=== PATIENT | female | born 1950 | race Caucasian/White ===

== ENCOUNTER 2019-06-27 12:27 | Emergency (ER) | payer OTHER ==
--- NOTE | 2019-06-27 12:34 | ED ---
HPI Cardiac - HPI Summary HPI Summary: 68 year old F presenting to [facility] with a chief complaint of shortness of breath on exertion since 4 weeks ago. Patient reports occasional tingling radiating down her right arm which she attributes to cervical radiculopathy and weight gain which she is unable to quantify. Symptoms aggravated by exertion. Symptoms alleviated by a nebulizer which was administered by EMS prior to arrival because they heard wheezing. Patient denies any dyspnea at rest, upper respiratory symptoms, orthopnea, fever, chills, diaphoresis, erythema of eyes, sore throat, chest pressure, cough, abdominal pain, nausea/vomiting, dysuria, hematuria, myalgia, edema, rash, or dizziness. She has a history of asthma which she states is allergic asthma that flares up in the fall and spring. She has had no known exposures to COVID-19. Medication list reviewed. Allergy list reviewed. - History of Current Complaint Stated Complaint: SOB PER EMS Hx Obtained From: Patient Onset/Duration: Started Weeks Ago Timing: Intermittent Aggravating Factor(s): Exertion Alleviating Factor(s): Medication Associated Signs and Symptoms: Positive: Negative - Orthopnea, erythema (eyes), sore throat, dysuria, hematuria, myalgia, rash, Tingling - Right arm, Shortness of Breath, Other: - Weight gain. Negative: Chest Pain, Dizziness, Fever, Chills , Diaphoresis, Nausea, Cough, Abdominal Pain, Vomiting, Edema - Allergy/Home Medications Allergies/Adverse Reactions: Allergies Allergy/AdvReac Type Severity Reaction Status Date / Time acetaminophen [From Tavist] Allergy Itching Verified 06/27/19 13:24 atorvastatin [From Lipitor] Allergy Muscle Ache Verified 06/27/19 13:24 clemastine [From Tavist] Allergy Itching Verified 06/27/19 13:24 pseudoephedrine [From Tavist] Allergy Itching Verified 06/27/19 13:24 quetiapine [From Seroquel] Allergy Anaphylatic Verified 06/27/19 13:24 Shock Home Medications: Home Medications Albuterol HFA INHALER* [Ventolin HFA Inhaler*] 2 puff INH Q4H PRN 06/27/19 [ History Confirmed 06/27/19] Cholecalciferol CAP/TAB(NF) [Vitamin D3 CAP/TAB (NF)] 2,000 unit PO . DIRECTED 06/27/19 [History Confirmed 06/27/19] EPINEPHrine [Epipen-Jr 2-Zeb] 0.15 mg IM ONCE PRN 06/27/19 [History Confirmed ] Ezetimibe/Simvastatin [Ezetimibe/Simvastatin 10-20 mg] 1 tab PO DAILY 06/27/19 [ History Confirmed 06/27/19] Fexofenadine (NF) [Nuvia 180 (NF)] 180 mg PO DAILY 06/27/19 [History Confirmed 06/27/19] Fluoxetine (Nf) Cap [Fluoxetine HCl] 40 mg PO QAM 06/27/19 [History Confirmed ] Furosemide TAB* [Lasix TAB*] 20 mg PO DAILY 06/27/19 [History Confirmed 06/27/19 ] PMH/Surg Hx/FS Hx/Imm Hx Endocrine/Hematology History: Denies: Hx Diabetes Cardiovascular History: Reports: Hx Hypercholesterolemia Denies: Hx Hypertension - Surgical History Surgical History: Yes Surgery Procedure, Year, and Place: Gallbladder, tonsils, hysterectomy, right knee arthroscopy, left hip, right arm - Family History Known Family History: Negative: Cardiac Disease - CAD - Social History Alcohol Use: None Hx Substance Use: No Substance Use Type: Reports: None Hx Tobacco Use: No Smoking Status (MU): Never Smoked Tobacco Review of Systems Positive: Other - Weight gain. Negative: Fever, Chills, Skin Diaphoresis Negative: Erythema Negative: Sore Throat Negative: Chest Pain Respiratory: Negative - Orthopnea Positive: Shortness Of Breath - On exertion. Negative: Cough Negative: Abdominal Pain, Vomiting, Nausea Negative: dysuria, hematuria Negative: Myalgia, Edema Negative: Rash Neurological/Mental Status: Negative - Dizziness Positive: Paresthesia - Right arm All Other Systems Reviewed And Are Negative: Yes Physical Exam - Summary Physical Exam Summary: Constitutional: Well-developed, Well-nourished, Alert. (-) Distressed Skin: Warm, Dry HENT: Normocephalic; Atraumatic Eyes: Conjunctiva normal Neck: Musculoskeletal ROM normal neck. (-) JVD, (-) Stridor, (-) Tracheal deviation Cardio: Rhythm regular, rate normal, Heart sounds normal; Intact distal pulses; The pedal pulses are 2+ and symmetric. Radial pulses are 2+ and symmetric. (-) Murmur Pulmonary/Chest wall: Effort normal. (-) Respiratory distress, (-) Wheezes, (-) Rales Abd: Soft, (-) tenderness, (-) Distension, (-) Guarding, (-) Rebound Musculoskeletal: (-) Edema Lymph: (-) Cervical adenopathy Neuro: Alert, Oriented x3 Psych: Mood and affect Normal Triage Information Reviewed: Yes Vital Signs Reviewed: Yes Procedures - Sedation Patient Received Moderate/Deep Sedation with Procedure: No Diagnostics - Laboratory Result Diagrams: 06/27/19 15:57 06/27/19 15:57 Lab Statement: Any lab studies that have been ordered have been reviewed, and results considered in the medical decision making process. - Radiology Chest x-ray Radiology Interpretation Completed By: Radiologist Summary of Radiographic Findings: NO ACTIVE CARDIOPULMONARY DISEASE. ED physician has reviewed this report. - EKG 12:52 Cardiac Rate: NL - 76 BPM EKG Rhythm: Sinus Rhythm Summary of EKG Findings: No STEMI. ED physician has reviewed and interpreted this EKG. Disposition - Course Course Of Treatment: 68 year old F presenting to [facility] with a chief complaint of shortness of breath on exertion since 4 weeks ago. Patient reports occasional tingling radiating down her right arm which she attributes to cervical radiculopathy and weight gain which she is unable to quantify. Physical exam findings reveal no abnormalities. An EKG reveals sinus rhythm rate of 76 BPM, no STEMI. CXR reveals, per radiologist, NO ACTIVE CARDIOPULMONARY DISEASE. Laboratory results with no significant abnormalities except for a BUN of 25, and BUN/creatinine ratio of 32.5. In the ED course, the patient was given Duonebs. Patient will be discharged with follow up from Dr. Haque and Dr. Allen. The patient is agreeable with this plan. - Diagnoses Provider Diagnoses: Suspected COVID-19 virus infection, Allergic asthma, Dyspnea on exertion - Critical Care Time Critical Care Statement: Critical care time is provided exclusive of any time spent performing procedures. Discharge ED - Sign-Out/Discharge Documenting (check all that apply): Patient Departure - Discharge Plan Condition: Stable Disposition: HOME Patient Education Materials: Asthma (ED), Dyspnea (ED), COVID-19 (Coronavirus Disease 2019) (ED) Forms: COVID-19 Tested & Isolation Referrals: Garland QUIROZ,Chuy Bergman [Primary Care Provider] - 3 Days Olivier Allen MD [Medical Doctor] - 5 Days Additional Instructions: Follow-up with your PCP in 2-3 days. Follow-up with Dr. Allen in 3-5 days for a potential stress test. Return to the emergency department for changing or worsening symptoms. - Attestation Statements Document Initiated by Scribe: Yes Documenting Scribe: Shante Kaufman Provider For Whom Scribe is Documenting (Include Credential): Wallace Hightower MD Scribe Attestation: I, Shante Kaufman, scribed for Wallace Hightower MD on 06/27/19 at [id number]. Status of Scribe Document: Ready
[2019-06-27] MEDS ORDERED: Albuterol/Ipratropium NEB.SOL* (2.5/0.5 MG) 3 ML NEB.SOLN INH ONE (12:47)
[2019-06-27] MEDS ORDERED: Albuterol/Ipratropium NEB.SOL* (2.5/0.5 MG) 3 ML NEB.SOLN INH SCH (13:00)
[2019-06-27 14:40] LABS: ALT 18 U/L (7-52); Albumin 4.1 g/dL (3.2-5.2); Albumin/Globulin Ratio 1.4 (1-3); Alkaline Phosphatase 86 U/L (34-104); BUN/Creatinine Ratio 32.5 (8-20); Blood Urea Nitrogen 25 mg/dL (6-24); CO2 Carbon Dioxide 26 mmol/L (22-32); Chloride 105 mmol/L (101-111); EGFR African American 90.2 (>60); EGFR Non-African American 74.5 (>60); Glucose 98 mg/dL (70-100); Sodium 136 mmol/L (135-145); Total Protein 7.1 g/dL (6.4-8.9)
[2019-06-27 14:41] LABS: Anion Gap 5 mmol/L (2-11)
[2019-06-27 16:23] LABS: ABS Basophils 0.1 10^3/ul (0-0.2); ABS Eosinophils 0.1 10^3/ul (0-0.6); ABS Lymphocytes 1.6 10^3/ul (1.0-4.8); ABS Monocytes 0.7 10^3/ul (0-0.8); ABS Neutrophils 6.3 10^3/ul (1.5-7.7); Eosinophil % 1.1 %; Hematocrit 40 % (35-47); Hemoglobin 13.8 g/dL (12.0-16.0); Lymphocyte % 18.3 %; Mean Corpuscular HGB Conc 35 g/dL (31-36); Mean Corpuscular Hemoglobin 30 pg (27-31); Mean Corpuscular Volume 86 fL (80-97); Mean Platelet Volume 8.3 fL (7.4-10.4); Nucleated Red Blood Cells % 0.2; Platelet Count 241 10^3/uL (150-450); Red Blood Count 4.65 10^6 /uL (3.70-4.87); Red Cell Distribution Width 14 % (10-15); White Blood Count 8.7 10^3/uL (3.5-10.8)
[2019-06-27 16:28] LABS: Potassium Redraw 4.3 mmol/L (3.5-5.0)
[2019-06-27 17:46] VITALS: BP 148/76
== END 2019-06-27 17:44 | disposition home or self-care (01) ==
LOC: ED 12:27
DX: R06.02 Shortness of breath (principal); Z20.828 Contact with and (suspected) exposure to other viral communicable diseases; R06.00 Dyspnea, unspecified; E78.00 Pure hypercholesterolemia, unspecified; J45.909 Unspecified asthma, uncomplicated; Z79.899 Other long term (current) drug therapy; R94.31 Abnormal electrocardiogram [ECG] [EKG]; Z88.8 Allergy status to other drugs, medicaments and biological substances; R20.2 Paresthesia of skin
CPT/HCPCS: 36415; 71045; 80053; 83605; 83880; 84484; 85025; 87635; 93005; 99284; U0003

== ENCOUNTER 2023-11-21 15:40 | Inpatient (IN) ==
[2023-11-21 19:17] LABS: ABS Eosinophils 0.2 10^3/uL (0.0-0.5); ABS Lymphocytes 1.9 10^3/uL (1.0-4.8); ABS Monocytes 0.7 10^3/uL (0.0-0.9); ABS Neutrophils 5.8 10^3/uL (1.5-7.6); ABS Nucleated RBC 0.01 10^3/ul; Hemoglobin 13.9 g/dL (11.5-14.3); Lymphocyte % 22.5 %; Mean Corpuscular Hemoglobin 29.6 pg (27-33); Mean Corpuscular Hgb Conc 33.8 g/dL (31-36); Mean Corpuscular Volume 87.6 fL (80-97); Mean Platelet Volume 7.5 fL (7.5-11.2); Nucleated Red Blood Cells % 0.1 %/100WBC (0.0-0.8); Platelet Count 306 10^3/uL (150-450); Red Blood Count 4.69 10^6/uL (3.63-4.92); Red Cell Distribution Width 13.7 % (12-17); White Blood Count 8.6 10^3/uL (3.8-11.8)
[2023-11-21 19:28] LABS: Urine Benzodiazepine Screen None Detected (None Detect); Urine Cannabinoids Screen None Detected (None Detect); Urine Opiates Screen None Detected (None Detect)
[2023-11-21 19:35] LABS: ALT 22 U/L (7-52); AST 21 U/L (13-39); Acetaminophen < 15 mcg/mL; Albumin 4.2 g/dL (3.2-5.2); Albumin/Globulin Ratio 1.7 (1-3); Alcohol, S < 13 mg/dL (<13); Alkaline Phosphatase 95 U/L (35-149); Anion Gap 7 mmol/L (2-16); Blood Urea Nitrogen 20 mg/dL (6-24); CO2 Carbon Dioxide 27 mmol/L (22-32); Calcium 8.9 mg/dL (8.6-10.3); Chloride 104 mmol/L (101-111); Creatinine, Serum 0.81 mg/dL (0.51-0.95); Globulin 2.5 g/dL (2-4); Glucose 97 mg/dL (70-100); Potassium 4.3 mmol/L (3.5-5.0); Salicylate < 2.50 mg/dL (<30); Sodium 138 mmol/L (135-145); Total Bilirubin 0.4 mg/dL (0.2-1.0); Total Protein 6.7 g/dL (6.4-8.9); eGFR CKD-EPI 76.6 (>60)
[2023-11-21 19:49] LABS: TSH Ultra Thyroid Stim Horm 2.11 mcIU/mL (0.34-5.60)
[2023-11-22] MEDS: Vitamin THERAPEUTIC TAB PO SCH (08:20)
[2023-11-22] MEDS ORDERED: Albuterol 2.5mg/3 ml (0.083%) NEB.SOLN INH PRN (11:31)
[2023-11-22] MEDS ORDERED: DESVENLAFAXINE 100 MG PO SCH (12:00)
[2023-11-22] MEDS ORDERED: Fexofenadine 180 mg TAB (NF) PO SCH (12:00)
[2023-11-22] MEDS: Desvenlafaxine 50 mg TAB ER (NF) PO SCH (12:32)
[2023-11-22] MEDS: Simvastatin 20 mg TAB (NF) PO SCH (12:33)
[2023-11-22] MEDS: Al Hydrox/Mg Hydrox/Simet LIQ 30 ML UDC PO PRN (16:16)
[2023-11-22] MEDS: Ondansetron ODT 4 mg TAB 4 MG TAB ONE (18:41)
[2023-11-22] MEDS: Ondansetron ODT 4 mg TAB 4 MG TAB PO ONE (21:35)
[2023-11-23 04:54] LABS: HDL Cholesterol 62.8 mg/dL
[2023-11-23 07:56] LABS: ABS Monocytes 0.7 10^3/uL (0.0-0.9); Eosinophil % 0.2 %; Hematocrit 37.5 % (35-45); Hemoglobin 12.6 g/dL (11.5-14.3); Lymphocyte % 9.2 %; Mean Corpuscular Hemoglobin 29.6 pg (27-33); Mean Corpuscular Hgb Conc 33.7 g/dL (31-36); Mean Corpuscular Volume 87.9 fL (80-97); Mean Platelet Volume 8.1 fL (7.5-11.2); Platelet Count 279 10^3/uL (150-450); Red Blood Count 4.27 10^6/uL (3.63-4.92); Red Cell Distribution Width 13.6 % (12-17); White Blood Count 10.8 10^3/uL (3.8-11.8)
[2023-11-23] MEDS: Ondansetron ODT 4 mg TAB 4 MG TAB SL PRN (08:12)
[2023-11-23] MEDS ORDERED: EZETIMIBE PO SCH (09:00)
[2023-11-23] MEDS ORDERED: SIMVASTAT PO SCH (09:00)
[2023-11-23 11:04] LABS: Calcium 8.9 mg/dL (8.6-10.3); Creatinine, Serum 0.84 mg/dL (0.51-0.95); Magnesium 2.1 mg/dL (1.9-2.7); Potassium 4.4 mmol/L (3.5-5.0); eGFR CKD-EPI 73.3 (>60)
[2023-11-25 10:16] VITALS: BP 114/61
== END 2023-11-25 13:20 | disposition home or self-care (01) | DRG 881 ==
LOC: ED 15:40 → EDHOLD 11-22 01:08 → BSU 11-22 01:46
PROVIDERS: ADMIT Psychiatry & Neurology Psychiatry; ATTEND Psychiatry & Neurology Psychiatry